=== PATIENT | male | born 1965 | race African-American/Black ===

== ENCOUNTER 2020-03-25 12:45 | Emergency (ER) | payer OTHER, SELFPAY ==
[2020-03-25 13:05] VITALS: BP 129/89; PULSE 75; RESP 20; TEMP 36.3; O2SAT 100
--- NOTE | 2020-03-25 13:23 | ED.DENTAL ---
HPI - Dental/Oral General Chief complaint: Dental/Oral Stated complaint: tooth pain Source: patient and RN notes reviewed Mode of arrival: ambulatory Limitations: no limitations History of Present Illness HPI Narrative: The patient, a non-smoker/occ drinker, presents with facial swelling. Patient states he has about 1/2-week, 3-day history of right, upper jaw dental pain. No fever, hoarseness, trismus; symptoms are mild, worse with palpation and has had previous dental work around the area in the past Related Data Home Medications Medication Instructions Recorded Confirmed diclofenac sodium 75 mg PO BID PRN 03/25/20 03/25/20 lisinopril 10 mg PO DAILY 03/25/20 03/25/20 Allergies Allergy/AdvReac Type Severity Reaction Status Date / Time No Known Allergies Allergy Verified 03/25/20 13:04 Review of Systems Review of Systems: Narrative: General/Constitutional: No weight loss,fever Eyes: N0: Redness,discharge Ears/Nose/Throat: No: Epistaxis,ear discharge Respiratory: Denies: Hemoptysis Gastrointestinal: No Vomiting, Bleeding-rectal Skin: No Lumps, eruption Neurologic: No Focal Weakness,Sz Hematologic: Denies: Petechiae/Purpura Psychiatric: No: Suicida ideationl All Other Systems: Reviewed and Negative PMFSH Comments At time of signature, agree with nursing past medical, surgical, social and family history. There is no relevant family history pertinent to the presenting complaint Exam Narrative: Exam Narrative: General Appearance: Well appearing, Conjunctiva clear Mouth/Throat: Normal appearing EX with mild right upper jaw swelling, Normal lips, MM moist, Uvula midline , scattered dental caries and fillings,, with rare fracture Neck: Supple, No adenopathy Respiratory: Airway patent, No respiratory distress, Musculoskeletal: Full ROM, Non tender, Normal strength Spine/Back: Normal ROM Skin: Warm, Dry, Normal color Neurological: A&O x3, Normal affect Course Vital Signs Vital signs: Vital Signs Temperature 97.4 F L 03/25/20 13:05 Pulse Rate 75 03/25/20 13:05 Respiratory Rate 03/25/20 13:05 Blood Pressure 129/89 03/25/20 13:05 Pulse Oximetry 100 03/25/20 13:05 Temperature 97.4 F L 03/25/20 13:05 Pulse Rate 75 03/25/20 13:05 Respiratory Rate 20 03/25/20 13:05 Blood Pressure 129/89 03/25/20 13:05 Pulse Oximetry 100 03/25/20 13:05 Discharge Plan Discharge Clinical Impression: Abscess of jaw, right Patient Disposition: Home, Self-Care Condition: Stable Instructions: Antibiotic Form, Dental Abscess (ED) Prescriptions: New tramadol 50 mg tablet 50 mg PO Q6H PRN (Reason: pain) Qty: 15 RF: 1 Lidocaine Viscous 2 % solution 5 ml MUCOUS MEM QID PRN (Reason: pain) Qty: 100 RF: 0 amoxicillin-pot clavulanate [Augmentin] 500-125 mg tablet 1 tablet PO Q12H Qty: 20 RF: 0 No Action lisinopril 10 mg Tablet 10 mg PO DAILY RF: 0 diclofenac sodium 75 mg Tablet,Delayed Release (Dr/Ec) 75 mg PO BID PRN (Reason: Pain) RF: 0 Follow-up/Referrals: UNKNOWN,DOCTOR [Primary Care Provider] - Stand Alone Forms: Work/School Release IP
== END 2020-03-25 13:31 | disposition home or self-care (01) ==
PROVIDERS: Emergency Provider Emergency Medicine
DX: K04.7 Periapical abscess without sinus (principal)
CPT/HCPCS: 99203; G0463